=== PATIENT | male | born 1950 | race Caucasian/White ===

== ENCOUNTER 2019-02-05 13:37 | Observation (INO) ==
[2019-02-05] MEDS ORDERED: oxyCODONE HCL/ACETAMINOPHEN 1 TAB TABLET PO ONE (13:50)
--- NOTE | 2019-02-05 14:10 | ERNOTE ---
Trauma/Assault HPI - Narrative Date of Service: 02/05/19 - General Stated Complaint: Fall; diabetes Time Seen by Provider: 02/05/19 13:48 Source: patient, family Exam Limitations: no limitations - Immun/Allergies/Home Medications Immunizations: IMMUNIZATION HX Immunizations Up to Date Yes History of Influenza Vaccine No Hx Pneumococcal Vaccination No Allergies/Adverse Reactions: Allergies morphine Adverse Reaction (Intermediate, Verified 02/05/19 15:13) Other hallucinations Home Medications: HOME MEDICATIONS Aspirin [Aspirin Chewable] 81 mg PO DAILY 11/02/14 [Last Taken 10/31/18] Losartan Potassium [Cozaar] 50 mg PO DAILY 11/02/14 [Last Taken 10/31/18] Nitroglycerin 0.4 mg SL Q5MIN PRN 11/02/14 [Last Taken Unknown] Rosuvastatin Calcium [Crestor] 40 mg PO DAILY 11/02/14 [Last Taken 10/31/18] calcium carbonate-vitamin D3 600 mg (1,500 mg)-400 unit capsule 600 mg PO DAILY 12/23/17 [Last Taken 10/31/18] metoprolol succinate ER 50 mg tablet,extended release 24 hr 50 mg PO DAILY 12/23/17 [Last Taken 10/31/18] tamsulosin 0.4 mg capsule 0.4 mg PO DAILY #90 cap 08/06/18 [Last Taken 10/31/18] blood sugar diagnostic strips See Dose Instructions .ROUTE .MEDSUPPLY #100 ea [Last Taken Unknown] metformin 1,000 mg tablet 1,000 mg PO DAILY 10/31/18 [Last Taken 10/31/18] omega-3 fatty acids 1,250 mg capsule 1,250 mg PO DAILY 10/31/18 [Last Taken 10/31/18] lidocaine 5 % topical gel See Rx Instructions TP .COMPLEX PRN g 12/26/18 [Last Taken Unknown] prochlorperazine maleate 10 mg tablet 10 mg PO Q6H PRN 12/26/18 [Last Taken Unknown] sennosides 8.6 mg-docusate sodium 50 mg tablet 1 tab PO BID PRN 12/26/18 [Last Taken Unknown] oxycodone 5 mg tablet 5 mg PO Q4H PRN tab 01/30/19 [Last Taken Unknown] fluoxetine 20 mg capsule 20 mg PO DAILY #30 cap 02/03/19 [Last Taken Unknown] foam bandage 9.2" X 9.2" See Dose Instructions .ROUTE .MEDSUPPLY #5 ea 02/03/19 [Last Taken Unknown] - History of Present Illness Date (Duration): 02/05/19 Time (Timing): 13:00 Narrative: 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 He is on chemo as well. Patient was reaching in his refrigerator to get a pop and fell forward onto his left side onto the floor. Scraped his right ear. Denies any loss of consciousness or headache. No vision changes. Complains of pain in the left ribs, left humerus, and left elbow. Describes as a constant sharp pain worse with movement. Denies any loss of movement or sensation. Denies any red stools or signs of bleeding. Location Occurred: Reports: home Pain Location: Reports: upper extremity Method of Injury: Reports: fall Severity: moderate Modifying Factors - (Improves): Reports: pain medication, rest Modifying Factors - (Worsens): Reports: movement Loss of Consciousness: Reports: no loss of consciousness, remembers the event, remembers coming to hospital Associated Symptoms - Trauma: Reports: denies symptoms Review of Systems - Review of Systems Constitutional: Present: no symptoms reported EYE: Present: no symptoms reported ENT: Present: other - Abrasion on the right ear. Respiratory: Present: other - Significant tenderness over lateral rib cage near the bottom. Cardiology: Present: no symptoms reported Gastrointestinal/Abdominal: Present: no symptoms reported Musculoskeletal: Present: See HPI - Left lateral ribs 5-8 mainly with movement. Patient has a plate in the left humerus from a previous fracture with chronic deformity. Today this is worse extending down into the left elbow. , other Skin: Present: other - abrasion of the left ear. Neurological: Present: no symptoms reported Endocrine: Present: no symptoms reported Medical History (Updated 02/05/19 @ 16:37 by RITA Carranza) Androgen deprivation therapy (Chronic) Onset Date: Unknown Prostate cancer (Acute) Onset Date: 10/05/17 Adenocarcinoma, [place] 4+5, PSA 31, high risk. Hypertension (Chronic) Onset Date: ~12/07/11 Hyperlipidemia (Chronic) Onset Date: Unknown Elevated PSA, greater than or equal to 20 ng/ml (Acute) Onset Date: 09/07/17 31.03ng/mL Diabetes (Chronic) Onset Date: ~12/07/11 Coronary artery disease (Chronic) Onset Date: ~12/23/17 Compression fracture of C6 vertebra Compression fracture of T7 vertebra Bone metastases Onset Date: ~11/2018 Hiatal hernia Onset Date: Unknown 01/20/[address] [facility] [address] Nguyen "6mm sliding hiatal hernia" Left humeral fracture Onset Date: 10/28/18 Metastatic bone cancer Onset Date: ~11/2018 Neuroendocrine cancer Onset Date: ~11/2018 Pathologic fracture of cervical vertebra Onset Date: ~11/30/18 C6 from MRI C Spine at [facility] 11/30/2018 Small cell carcinoma Onset Date: ~11/2018 Small cell carcinoma Onset Date: ~2018 metastatic Myocardial infarction Onset Date: ~07/2005 non Q-wave [place] with subsequent stenting [place] Onset Date: ~194 Surgical History: Surgical History (Updated 01/20/19 @ 11:03 by Arlen Tirado RN) History of open reduction and internal fixation (ORIF) procedure (Acute) Onset Date: ~11/01/18 Open reduction internal fixation left humeral shaft fracture Dr. Gage Encounter for intravenous line placement Onset Date: ~12/27/18 H/O esophagogastroduodenoscopy Onset Date: ~01/19/19 [facility]- DR Lloyd H/O prostate biopsy Onset Date: ~09/27/17 [facility] History of angioplasty Onset Date: ~07/200511/25/2006: RCA stent 07/2005 History of coronary artery stent placement Onset Date: ~12/23/172005,2006,2009 - Dr. Castañeda History of cystoscopy Onset Date: 09/27/17 [facility] w/ 6 biopsies Family History: Family History (Updated 01/30/19 @ 10:20 by Trey Lucia MA) Daughter Age: 36 Seizures Father Unknown family medical history Mother Heart disease Social History: (Last Reviewed 02/05/19 @ 13:45 by Courtney Oconnor RN) Social History: adopted: No half-way: No Marital status: household members: family, spouse number of children: 3 current occupational status: retired Service: No Tobacco: Smoking Status: Never smoker second hand exposure: No Alcohol: alcohol intake: current alcohol intake frequency: holiday/special occasion Substance Use: substance use type: does not use Dietary Habits: caffeine: No Physical Exam - Physical Exam General Appearance: Present: wd/wn, alert Head Exam: Present: normal inspection, no tenderness w palpation Eye Exam: Normal inspection: bilateral, PERRL: bilateral, EOMI: bilateral Ears, Nose, Throat: Present: normal ENT inspection, normal pharynx Neck: Present: normal inspection, nontender, supple Respiratory: Present: no respiratory distress, normal breath sounds, lungs clear, other - Left lateral rib discomfort with palpation over ribs 7-10. No abnormal structure. No crepitus. Cardiovascular/Chest: Present: regular rate, rhythm, no murmur, normal peripheral pulses Gastrointestinal/Abdominal: Present: normal bowel sounds, soft Back Exam: Present: no vertebral tenderness Extremity Exam: Present: other - Left humerus tenderness with chronic swelling on the lower deltoid region. Left medial epicondyle pain with palpation and movement. No abnormal structure. Left sap [place] consultant weak but present. Patient is able to move the left elbow. Distal sensation intact. Remainder of extremities normal. Neurological Exam: Present: alert, oriented, normal mood/affect, no motor/sensory deficits Skin Exam: Present: normal color, warm/dry Detailed Trauma Exam Best Eye Response ([place]): (4) open spontaneously Best Verbal Response ([place]): (5) oriented Best Motor Response ([place]): (6) obeys commands [place] Total: 15 Progress - Results and Orders Patient's Lab Results:: I have reviewed the patient's lab results. - Vital Signs Patient's Vital Signs:: I have reviewed the patient's vital signs. Vital Signs: Vital Signs 02/05/19 13:39 02/05/19 13:49 Temperature 36.6 C Pulse Rate 83 82 Respiratory Rate 17 Blood Pressure 107/65 O2 Sat by Pulse Oximetry 100 - X-Ray X-Ray #1 X-Ray: humerus Interpretation: Reviewed by me - Left - chronic fracture with plate. No acute findings. X-Ray #2 X-Ray: elbow - Left - No acute findings Interpretation: Reviewed by me X-Ray #3 X-Ray: ribs - Left - anterio/lateral 8,9,10 w/ 8 posterior fracture. Interpretation: Reviewed by me - Progress/Reassessment Chief Complaint: Fall Progress:: Improved Progress Note-Subjective: 02/05/19 16:31 Improved but still has pain that is not resolved. After percocet and toradol he still has pain 5/10. Am concerned about pain control at home. - Transfer of Care Additional Notes: Discussed patient with oncologist from [place] Dr. Wynn who confirmed th at with the current traumatic event and anemia they would wish patient to receive 2 units of blood. Called Dr. Bahena who agree to observation for pain control and blood transfusion. Patient agrees with plan of care. Departure Clinical Impression: Flail chest, initial encounter for closed fracture Multiple rib fractures Qualifiers: Encounter type: initial encounter Fracture type: closed Laterality: left Qualified Code(s): S22.42XA - Multiple fractures of ribs, left side, initial encounter for closed fracture Anemia Qualifiers: Anemia type: other cause Other causes of anemia: chronic disease, neoplastic Qualified Code(s): D63.0 - Anemia in neoplastic disease - Departure Disposition: Still a patient Condition: Good Critical Care Time - Critical Care Critical Time Spent:: No
[2019-02-05] MEDS ORDERED: KETOROLAC TROMETHAMINE 30 MG/ML VIAL IV ONE (14:54)
[2019-02-05 15:28] LABS: Mean Cell Volume 86.3 fl (78-100); Mean Corpuscular Hemoglobin 27.4 pg (27-31); Mean Corpuscular Hgb Conc 31.8 g/dl (32-36); Platelet Count 33 K/mm3 (150-450); Red Cell Distribution Width 20.4 % (11.5-14.0); White Blood Count 6.2 K/mm3 (4.0-10.5)
[2019-02-05 15:33] LABS: BUN/Creatinine Ratio 21.8 (9.0-21.6); Carbon Dioxide 26.2 mmol/L (24-32.6); Estimated Creat Clear 120.9; Potassium 4.2 mmol/L (3.4-4.6)
[2019-02-05 15:39] LABS: Hemoglobin 7.4 gm/dL (13.5-18.0)
[2019-02-05 15:40] LABS: Hematocrit 23.3 % (42.0-52.0)
[2019-02-05 15:41] LABS: Total Cells Counted 100
[2019-02-05 15:52] LABS: Band 5 % (0-2.0); Lymphocyte 3 % (20-51); Monocyte 11 % (0-9); Neutrophil 81 % (42-75); Platelet Estimate Decreased (NORMAL)
[2019-02-05 15:53] LABS: RBC Morphology Normal (NORMAL)
[2019-02-05] MEDS ORDERED: FUROSEMIDE 10 MG/ML VIAL IV ONE ×2 (16:18→23:45)
[2019-02-05] MEDS ORDERED: ONDANSETRON HCL/PF 2 MG/ML VIAL IV PRN (16:24)
[2019-02-05] MEDS ORDERED: KETOROLAC TROMETHAMINE 30 MG/ML VIAL IV PRN (16:32)
--- NOTE | 2019-02-05 21:18 | HP ---
Chief Complaint - Chief Complaint Date of Service: 02/05/19 Time of Service: 20:10 Chief Complaint: Fractured left ribs with flail eighth rib, anemia, metastatic cancer to bone primary unknown History of Present Illness: Mr. Espinoza is an 68-year-old male patient of Dr. Mcgill who has a known malignancy with metastasis to bone. He has been weaker of late. He was in his chair and leaned over to open a dorm room size refrigerator to get a can of soda when he fell out of his chair and onto his left side fracturing ribs 8, 9, and 10. The eighth rib is broken in 2 locations. About 7 weeks ago he had a fall and broke his left proximal humerus and it was thought to be a pathological fracture from metastasis which is now healed. He is admitted to receive 2 units of packed red blood cells. Dr. Gary contacted his oncologist and they concurred that he should receive 2 units of packed red blood cells tonight. It has been ordered. 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 Hypertension (Chronic) Onset Date: ~12/07/11 Hyperlipidemia (Chronic) Onset Date: Unknown Elevated PSA, greater than or equal to 20 ng/ml (Acute) Onset Date: 09/07/17 31.03ng/mL Diabetes (Chronic) Onset Date: ~12/07/11 Coronary artery disease (Chronic) Onset Date: ~12/23/17 Compression fracture of C6 vertebra Compression fracture of T7 vertebra Bone metastases Onset Date: ~11/2018 Hiatal hernia Onset Date: Unknown 01/20/[address] [facility] [address] Nguyen "6mm sliding hiatal hernia" Left humeral fracture Onset Date: 10/28/18 Metastatic bone cancer Onset Date: ~11/2018 Neuroendocrine cancer Onset Date: ~11/2018 Pathologic fracture of cervical vertebra Onset Date: ~11/30/18 C6 from MRI C Spine at [facility] 11/30/2018 Small cell carcinoma Onset Date: ~11/2018 Small cell carcinoma Onset Date: ~2018 metastatic Myocardial infarction Onset Date: ~07/2005 non Q-wave [place] with subsequent stenting [place] Onset Date: ~194 Surgical History: Surgical History (Updated 01/20/19 @ 11:03 by Arlen Tirado RN) History of open reduction and internal fixation (ORIF) procedure (Acute) Onset Date: ~11/01/18 Open reduction internal fixation left humeral shaft fracture Dr. Gage Encounter for intravenous line placement Onset Date: ~12/27/18 H/O esophagogastroduodenoscopy Onset Date: ~01/19/19 [facility]- DR Lloyd H/O prostate biopsy Onset Date: ~09/27/17 [facility] History of angioplasty Onset Date: ~07/200511/25/2006: RCA stent 07/2005 History of coronary artery stent placement Onset Date: ~12/23/172005,2006,2009 - Dr. Castañeda History of cystoscopy Onset Date: 09/27/17 [facility] w/ 6 biopsies Family History: Family History (Updated 01/30/19 @ 10:20 by Trey Lucia MA) Daughter Age: 36 Seizures Father Unknown family medical history Mother Heart disease Social History: (Last Reviewed 02/05/19 @ 16:52 by Thelma Mccray RN) Social History: adopted: No group home: No Marital status: household members: family, spouse number of children: 3 current occupational status: retired Service: No Tobacco: Smoking Status: Never smoker second hand exposure: No Alcohol: alcohol intake: current alcohol intake frequency: holiday/special occasion Substance Use: substance use type: does not use Dietary Habits: caffeine: No Review Of Systems (GEN) - Review of Systems Generalized/Overall Review: Present: Weakness EENTM: Present: No Symptoms Reported Respiratory: Present: No Symptoms Reported, Other - Painful deep breathing due to rib fractures Cardiac: Present: No Symptoms Reported Abdominal: Present: No Symptoms Reported Genitourinary: Present: No Symptoms Reported, Other - He has a history of prostate cancer but thinks that this cancer is a different primary. Reportedly it is a small cell cancer. Musculoskeletal: Present: No Symptoms Reported, Other - He has pain in the left anterolateral ribs due to fractures of the eighth ninth and 10th ribs. Neurological: Present: Weakness Skin: Present: No Symptoms Reported Endocrine: Present: No Symptoms Reported Immunizations: IMMUNIZATION HX Immunizations Up to Date Yes History of Influenza Vaccine No Hx Pneumococcal Vaccination No Allergies/Adverse Reactions: Allergies Allergy/AdvReac Type Severity Reaction Status Date / Time morphine AdvReac Intermediate Other Verified 02/05/19 16:52 Home Medications: HOME MEDICATIONS Aspirin [Aspirin Chewable] 81 mg PO DAILY 11/02/14 [Last Taken 10/31/18] Losartan Potassium [Cozaar] 50 mg PO DAILY 11/02/14 [Last Taken 10/31/18] Nitroglycerin 0.4 mg SL Q5MIN PRN 11/02/14 [Last Taken Unknown] Rosuvastatin Calcium [Crestor] 40 mg PO DAILY 11/02/14 [Last Taken 10/31/18] calcium carbonate-vitamin D3 600 mg (1,500 mg)-400 unit capsule 600 mg PO DAILY 12/23/17 [Last Taken 10/31/18] metoprolol succinate ER 50 mg tablet,extended release 24 hr 50 mg PO DAILY 12/23/17 [Last Taken 10/31/18] tamsulosin 0.4 mg capsule 0.4 mg PO DAILY #90 cap 08/06/18 [Last Taken 10/31/18] blood sugar diagnostic strips See Dose Instructions .ROUTE .MEDSUPPLY #100 ea 09/05/18 [Last Taken Unknown] metformin 1,000 mg tablet 1,000 mg PO DAILY 10/31/18 [Last Taken 10/31/18] omega-3 fatty acids 1,250 mg capsule 1,250 mg PO DAILY 10/31/18 [Last Taken 10/31/18] prochlorperazine maleate 10 mg tablet 10 mg PO Q6H PRN 12/26/18 [Last Taken Unknown] sennosides 8.6 mg-docusate sodium 50 mg tablet 1 tab PO BID PRN 12/26/18 [Last Taken 02/05/19] oxycodone 5 mg tablet 5 mg PO Q4H PRN tab 01/30/19 [Last Taken Unknown] fluoxetine 20 mg capsule 20 mg PO DAILY #30 cap 02/03/19 [Last Taken 02/05/19] foam bandage 9.2" X 9.2" See Dose Instructions .ROUTE .MEDSUPPLY #5 ea 02/03/19 [Last Taken Unknown] Exam - Exam Vital Signs: Vital Signs - Last Taken Temp 36.9 C 02/05/19 18:47 Pulse 77 02/05/19 18:47 Resp 20 08/25/19 18:47 BP 111/62 02/05/19 18:47 Pulse Ox 96 02/05/19 18:47 Constitutional: Present: Alert, Oriented x3, Cooperative, Well developed, Well nourished, No distress ENT Exam: Present: normal ENT inspection, hearing grossly normal, pharynx normal, TMs normal Eye Exam: bilateral eye: normal inspection, PERRL, EOMI Neck: Present: non-tender, limited range of motion Back Exam: Present: normal inspection, no CVA tenderness, no vertebral tenderness Respiratory: Present: lungs clear, normal breath sounds, no respiratory distress, no accessory muscle use, other - Chest is tender along the fracture areas of the left ribs Cardiovascular/Chest: Present: normal peripheral pulses, regular rate, rhythm, no chest tenderness, no edema, no gallop, no JVD, no murmur, no rub Peripheral Pulses: carotid (R): 2+, carotid (L): 2+, radial (R): 2+, radial (L): 2+ Abdomen: Present: Normal bowel sounds, soft, nontender, nondistended, no rebound tenderness, no hepatospenomegaly, no masses /Rectal: Present: Exam deferred Extremity: Present: normal range of motion, non-tender, normal inspection, no pedal edema, no calf tenderness Skin Exam: Present: normal color, warm/dry, no cyanosis Lymphatic: Present: no adenopathy Neurologic: Present: configuration 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 II-XII nml as tested, abnormal cerebellar tests, motor weakness Appearance: Present: appropriate appearance, appropriate insight, neat, no memory impairment Eye contact: Present: cooperative, good eye contact, normal speech, avoids eye contact Thoughts: Present: normal thought pattern, no apparent hallucination Diagnostic Studies: Abnormal Lab Results 02/05/19 02/05/19 02/05/19 Range/Units 15:21 15:21 16:25 RBC 2.70 L (4.7-6.0) M/mm3 Hgb 7.4 L* (13.5-18.0) gm/dL Hct 23.3 L* (42.0-52.0) % MCHC 31.8 L (32-36) g/dl RDW 20.4 H (11.5-14.0) % Plt Count 33 L (150-450) K/mm3 Neutrophils % (Manual) 81 H (42-75) % Band Neuts % (Manual) 5 H (0-2.0) % Lymphocytes % (Manual) 3 L (20-51) % Monocytes % (Manual) 11 H (0-9) % Lymphocytes # (Manual) 0.2 L (1.5-3.5) k/mm3 Platelet Estimate Decreased L (NORMAL) Anion Gap 14.0 H (6.8-13.8) mmol/L Est GFR (Non-Af Amer) 157 H D (60-130) mL/min BUN/Creatinine Ratio 21.8 H (9.0-21.6) Random Glucose 147 H (70-110) mg/dL Crossmatch See Detail Laboratory Results WBC 6.2 K/mm3 (4.0-10.5) 02/05/19 15:21 RBC 2.70 M/mm3 (4.7-6.0) L 02/05/19 15:21 Hgb 7.4 gm/dL (13.5-18.0) L* 02/05/19 15:21 Hct 23.3 % (42.0-52.0) L* 02/05/19 15:21 MCV 86.3 fl (78-100) 02/05/19 15:21 MCH 27.4 pg (27-31) 02/05/19 15:21 MCHC 31.8 g/dl (32-36) L 02/05/19 15:21 RDW 20.4 % (11.5-14.0) H 02/05/19 15:21 Plt Count 33 K/mm3 (150-450) L 02/05/19 15:21 MPV 10.0 fl (8-11.3) 02/05/19 15:21 81 % (42-75) H 02/05/19 15:21 Band Neuts % (Manual) 5 % (0-2.0) H 02/05/19 15:21 3 % (20-51) L 02/05/19 15:21 11 % (0-9) H 02/05/19 15:21 5.0 K/mm3 (1.3-6.0) 02/05/19 15:21 0.2 k/mm3 (1.5-3.5) L 02/05/19 15:21 0.7 k/mm3 (0.0-1.0) 02/05/19 15:21 Decreased (NORMAL) L 02/05/19 15:21 RBC Morphology Normal (NORMAL) 02/05/19 15:21 Sodium 140 mmol/L (132-142) 02/05/19 15:21 141 mmol/L (130-142) 02/05/19 15:21 Potassium 4.2 mmol/L (3.4-4.6) 02/05/19 15:21 Chloride 104 mmol/L (97-106) 02/05/19 15:21 Carbon Dioxide 26.2 mmol/L (24-32.6) 02/05/19 15:21 14.0 mmol/L (6.8-13.8) H 02/05/19 15:21 BUN 12 mg/dL (6-23) 02/05/19 15:21 0.55 mg/dL (0.4-1.4) 02/05/19 15:21 Est GFR (Non-Af Amer) 157 mL/min (60-130) H D 02/05/19 15:21 21.8 (9.0-21.6) H 02/05/19 15:21 147 mg/dL (70-110) H 02/05/19 15:21 Calcium 8.0 mg/dL (7.9-10.9) 02/05/19 15:21 Blood Type A Positive 02/05/19 16:25 Antibody Screen Negative 02/05/19 16:25 Crossmatch See Detail 02/05/19 16:25 Assessment/Plan - Narrative Narrative: Changes received 2 units of packed red blood cells through the night. He will have repeat CBC chemistry profile tomorrow and I will order 2 view chest x-ray for morning also. - Assessment/Plan (1) Anemia Problem: Acute Qualifiers: Anemia type: other cause Other causes of anemia: chronic disease, neoplastic Qualified Code(s): D63.0 - Anemia in neoplastic disease (2) Multiple rib fractures Problem: Acute Qualifiers: Encounter type: initial encounter Fracture type: closed Laterality: left Qualified Code(s): S22.42XA - Multiple fractures of ribs, left side, initial encounter for closed fracture (3) Small cell lung cancer Problem: Acute (4) Fall in home Problem: Acute Qualifiers: Encounter type: initial encounter Qualified Code(s): W19.XXXA - Unspecified fall, initial encounter; Y92.009 - Unspecified place in unspecified non- institutional (private) residence as the place of occurrence of the external cause (5) Flail chest, initial encounter for closed fracture Problem: Acute (6) Prostate cancer Problem: Acute
[2019-02-05] MEDS ORDERED: oxyCODONE HCL 5 MG TABLET PO PRN (21:20)
[2019-02-05] MEDS ORDERED: PROCHLORPERAZINE MALEATE 10 MG TABLET PO PRN (21:20)
[2019-02-05] MEDS ORDERED: NITROGLYCERIN 0.4 MG/TAB BTL SL PRN (21:20)
[2019-02-05] MEDS ORDERED: SENNOSIDES/DOCUSATE SODIUM 1 TAB TABLET PO PRN (21:20)
[2019-02-05] MEDS ORDERED: [UNRECOGNIZED DRUG - SUPPLY] TD SCH (21:30)
[2019-02-05] MEDS ORDERED: FUROSEMIDE 10 MG/ML VIAL IV SCH (21:45)
[2019-02-05] MEDS: oxyCODONE HCL/ACETAMINOPHEN 1 TAB TABLET PO PRN (23:45)
[2019-02-06] MEDS ORDERED: HEPARIN SOD.,PORCINE 100 UNITS/ML ONE ×3 (02:52→05:26)
[2019-02-06 03:50] LABS: Hematocrit 29.1 % (42.0-52.0); Hemoglobin 9.6 gm/dL (13.5-18.0)
[2019-02-06] MEDS: oxyCODONE HCL/ACETAMINOPHEN 1 TAB TABLET PO PRN ×2 (05:36→12:50)
[2019-02-06 05:49] LABS: Hematocrit 30.1 % (42.0-52.0); Hemoglobin 9.9 gm/dL (13.5-18.0); Mean Corpuscular Hgb Conc 32.9 g/dl (32-36); Mean Platelet Volume 11.1 fl (8-11.3); Platelet Count 35 K/mm3 (150-450); Red Blood Count 3.54 M/mm3 (4.7-6.0); White Blood Count 7.7 K/mm3 (4.0-10.5)
[2019-02-06 05:51] LABS: Total Cells Counted 100
[2019-02-06 05:58] LABS: Anion Gap 12.4 mmol/L (6.8-13.8); BUN/Creatinine Ratio 20.4 (9.0-21.6); Bilirubin, Total 0.7 mg/dL (0.0-1.1); Ca. Corrected For Albumin 8.3 mg/dL (8.4-10.2); Calcium * 7.8 mg/dL (7.9-10.9); Carbon Dioxide 25.8 mmol/L (24-32.6); Potassium 4.2 mmol/L (3.4-4.6); Total Protein 6.2 gm/dL (6.2-8.2)
[2019-02-06 06:22] LABS: Band 5 % (0-2.0); Eosinophil 3 % (0-3); Hypochromia Trace; Immature Granulocyte 2 (0-1); Lymphocyte 6 % (20-51); Monocyte 2 % (0-9); Neutrophil 82 % (42-75); Neutrophil # 6.3 K/mm3 (1.3-6.0); Platelet Estimate Decreased (NORMAL)
[2019-02-06] MEDS ORDERED: METOPROLOL SUCCINATE 50 MG TABLET.SA PO SCH (09:00)
[2019-02-06] MEDS ORDERED: ASPIRIN 81 MG TAB.CHEW PO SCH (09:00)
[2019-02-06] MEDS ORDERED: FLUoxetine HCL 20 MG CAPSULE PO SCH (09:00)
[2019-02-06] MEDS ORDERED: ENOXAPARIN SODIUM 40 MG/0.4 ML SYRG SC SCH (09:00)
[2019-02-06] MEDS ORDERED: OMEGA-3 FATTY ACIDS 1 CAP CAPSULE PO SCH (09:00)
[2019-02-06] MEDS ORDERED: LOSARTAN POTASSIUM 50 MG TABLET PO SCH (09:00)
--- NOTE | 2019-02-06 14:10 | DS ---
Date of Discharge:: 02/06/19 Description of Stay: 68-year-old male presented to the hospital following a ground-level fall resulting in left-sided rib pain. X-rays obtained here showed fractures at 8, 9, 10. Eighth rib was fractured in 2 locations. Repeat x-rays performed in the morning showed no change as well as no free air in the abdomen which initially was seen on x-ray on the day of discharge but found to be artifact. Upon admission patient was also found to have a hemoglobin of 7.4 he was transfused 2 units. Repeat H&H this morning showed him to be at 9.9 for his hemoglobin. He was feeling much better. These are pathologic fractures as patient is done with metastatic bone disease, some spots in his ribs. Currently undergoing chemotherapy and radiation for this issue. Patient's pain is fairly well-controlled currently and he is wanting to go home. Patient was able to tolerate physical therapy twice on the day of discharge. His vital signs have been stable and he is afebrile. He will follow-up with me in 1 week, no changes to his medications at this time. Procedures Performed: none Results and Findings: Lab Pending Results 02/05/19 15:21: WBC 6.2, RBC 2.70 L, Hgb 7.4 L*, Hct 23.3 L*, MCV 86.3, MCH 27.4, MCHC 31.8 L, RDW 20.4 H, Plt Count 33 L, MPV 10.0, Neutrophils % (Manual) 81 H, Band Neuts % (Manual) 5 H, Lymphocytes % (Manual) 3 L, Monocytes % (Manual) 11 H, Neutrophils # (Manual) 5.0, Lymphocytes # (Manual) 0.2 L, Monocytes # (Manual) 0.7, Platelet Estimate Decreased L, RBC Morphology Normal 02/05/19 15:21: Sodium 140, Plasma Sodium 141, Potassium 4.2, Chloride 104, Carbon Dioxide 26.2, Anion Gap 14.0 H, BUN 12, Creatinine 0.55, Est GFR (Non-Af Amer) 157 H D, BUN/Creatinine Ratio 21.8 H, Random Glucose 147 H, Calcium 8.0 02/05/19 16:25: Blood Type A Positive, Antibody Screen Negative, Crossmatch See Detail 02/06/19 03:45: Hgb 9.6 L, Hct 29.1 L 02/06/19 05:24: WBC 7.7 D, RBC 3.54 L, Hgb 9.9 L, Hct 30.1 L, MCV 85.0, MCH 28.0, MCHC 32.9, RDW 19.0 H, Plt Count 35 L, MPV 11.1, Neutrophils % (Manual) 82 H, Band Neuts % (Manual) 5 H, Lymphocytes % (Manual) 6 L, Monocytes % (Manual) 2, Eosinophils % (Manual) 3, Immature Granulocytes 2 H, Neutrophils # (Manual) 6.3 H, Lymphocytes # (Manual) 0.5 L, Monocytes # (Manual) 0.2, Eosinophils # (Manual) 0.2, Nucleated RBCs 1.0, Platelet Estimate Decreased L, Hypochromasia Trace 02/06/19 05:24: Sodium 137, Plasma Sodium 137, Potassium 4.2, Chloride 103, Carbon Dioxide 25.8, Anion Gap 12.4, BUN 10, Creatinine 0.49, Est GFR (Non-Af Amer) 179 H, BUN/Creatinine Ratio 20.4, Random Glucose 119 H, Calcium 7.8 L, Calcium Adj for Albumin 8.3 L, Total Bilirubin 0.7, AST 13, ALT 10 L, Alkaline Phosphatase 262 H, Total Protein 6.2, Albumin 3.0 L Discharge Location: Home Disposition: Home self-care Condition: Stable Discharge Activity: Activity as tolerated Discharge Diet: General/regular food Referrals: Sami Mcgill DO [Primary Care Provider] - One Week Additional Patient Instructions (free text): -Please make TCM appointment unless senior care discharge, or if following up with outside provider. Thank you! Ailyn @ [facility] [phone] or Sandi at [facility]. Complete Home Medications List: Complete Home Medication List: Aspirin [Aspirin Chewable] 81 mg PO DAILY 11/02/14 Losartan Potassium [Cozaar] 50 mg PO DAILY 11/02/14 Nitroglycerin 0.4 mg SL Q5MIN PRN 11/02/14 Rosuvastatin Calcium [Crestor] 40 mg PO DAILY 11/02/14 calcium carbonate-vitamin D3 600 mg (1,500 mg)-400 unit capsule 600 mg PO DAILY 12/23/17 metoprolol succinate ER 50 mg tablet,extended release 24 hr 50 mg PO DAILY 12/23/17 tamsulosin 0.4 mg capsule 0.4 mg PO DAILY #90 cap 08/06/18 blood sugar diagnostic strips See Dose Instructions .ROUTE .MEDSUPPLY #100 ea 09/05/18 metformin 1,000 mg tablet 1,000 mg PO DAILY 10/31/18 omega-3 fatty acids 1,250 mg capsule 1,250 mg PO DAILY 10/31/18 prochlorperazine maleate 10 mg tablet 10 mg PO Q6H PRN 12/26/18 sennosides 8.6 mg-docusate sodium 50 mg tablet 1 tab PO BID PRN 12/26/18 oxycodone 5 mg tablet 5 mg PO Q4H PRN tab 01/30/19 fluoxetine 20 mg capsule 20 mg PO DAILY #30 cap 02/03/19 foam bandage 9.2" X 9.2" See Dose Instructions .ROUTE .MEDSUPPLY #5 ea 02/03/19
[2019-02-06 16:19] VITALS: BP 141/85
[2019-02-06] MEDS ORDERED: TAMSULOSIN HCL 0.4 MG CAP.SR.24H PO SCH (17:00)
== END 2019-02-06 16:25 | disposition home or self-care (01) ==
LOC: ER 13:37 → MS 13:37
PROVIDERS: ADMIT Family Medicine; ATTEND Family Medicine
CPT/HCPCS: 36415; 36430; 71010; 71045; 71100; 73060; 73080; 74000; 74018; 74019; 74020; 80048; 80053; 85014; 85018; 85025; 86850; 96372; 96374; 96375; 97110; 97116; 99285; G0378